=== PATIENT | female | born 1995 | race Native Hawaiian/Other Pacific Islander ===

== ENCOUNTER 2016-06-12 14:52 | Emergency (ER) | payer OTHER ==
[~2016-06-12] VITALS: Ht 175.3 cm; Wt 90.7 kg
== END 2016-06-12 17:51 | disposition home or self-care (01) ==
LOC: ED 14:52
DX: M79.1 Myalgia (principal); V43.52XA Car driver injured in collision with other type car in traffic accident, initial encounter
CPT/HCPCS: 81025; 99282